=== PATIENT | male | born 1960 | race Caucasian/White ===

== ENCOUNTER 2019-02-24 20:52 | Emergency (ER) | payer BC ==
--- NOTE | 2019-02-25 00:01 | EDM.PDOC ---
ED HPI GENERAL MEDICAL PROBLEM - General Chief Complaint: Upper Extremity Injury/Pain Stated Complaint: HURT L SHOULDER Time Seen by Provider: 02/24/19 23:57 Source of Information: Reports: Other Right Flank Pain Score (Numeric/FACES): 10 - Related Data Allergies Allergy/AdvReac Type Severity Reaction Status Date / Time losartan Allergy Other Verified 02/24/19 22:41 Home Meds: Home Meds Pantoprazole [ProTONIX] 40 mg PO DAILY 02/24/19 [History] amLODIPine [Norvasc] 5 mg PO DAILY 02/24/19 [History] atorvaSTATin [Lipitor] 40 mg PO BEDTIME 02/24/19 [History] hydroCHLOROthiazide [Hydrochlorothiazide] 25 mg PO DAILY 02/24/19 [History] metFORMIN [Glucophage XR] 500 mg PO DAILY 02/24/19 [History] Past Medical History HEENT History: Reports: Allergic Rhinitis, Impaired Vision Gastrointestinal History: Reports: GERD Musculoskeletal History: Reports: Other (See Below) Other Musculoskeletal History: right knee repair x5 Neurological History: Reports: Concussion Endocrine/Metabolic History: Reports: Diabetes, Type II - Past Surgical History GI Surgical History: Reports: Hernia Repair/Other Musculoskeletal Surgical History: Reports: Shoulder Surgery Social & Family History - Tobacco Use Smoking Status *Q: Never Smoker - Caffeine Use Caffeine Use: Reports: Coffee - Alcohol Use Days Per Week of Alcohol Use: 7 Number of Drinks Per Day: 3 Total Drinks Per Week: 21 - Recreational Drug Use Recreational Drug Use: No Review of Systems - Review of Systems Review Of Systems: Unable To Obtain Reason Not Obtained: Left without being seen ED EXAM, GENERAL - Physical Exam Exam: Not Obtained Course - Vital Signs Last Recorded V/S: Last Vital Signs Temp 97.8 F 02/24/19 22:54 Pulse 91 02/24/19 22:54 Resp 16 02/24/19 22:54 BP 186/108 H 02/24/19 22:54 Pulse Ox 94 L 02/24/19 22:54 Departure - Departure Time of Disposition: 23:59 Disposition: Against Medical Advice 07 Condition: Undetermined Clinical Impression: Unknown cause of injury - Discharge Information Referrals: PCP,None [Primary Care Provider] - Sepsis Event Note - Evaluation Sepsis Screening Result: No Definite Risk - Focused Exam Vital Signs: Vital Signs Temp Pulse Resp BP BP Pulse Ox 02/24/19 22:54 97.8 F 91 16 133/82 186/108 H 94 L 02/24/19 22:53 91 16 133/82 94 L 02/24/19 22:21 97.8 F 78 16 186/108 H 95 Date Exam was Performed: 02/24/19 Time Exam was Performed: 23:59 - Assessment/Plan Plan: Patient left before being evaluated
== END 2019-02-25 00:02 | disposition left against medical advice (07) ==
LOC: JP.ED 20:52
DX: Z53.21 Procedure and treatment not carried out due to patient leaving prior to being seen by health care provider (principal)
CPT/HCPCS: 99283